=== PATIENT | female | born 1985 | race Caucasian/White ===

== ENCOUNTER 2024-06-10 12:44 | Outpatient (CLI) | payer BC ==
[~2024-06-10 12:44] MED LIST: CYCL-1 PO; DICL50TA8 PO
[2024-06-10 13:11] LABS: BASOPHILS # (AUTO) 0.1 X10'3 (0-0.2); BASOPHILS % (AUTO) 0.9 % (0-1); EOSINOPHILS # (AUTO) 0.4 X10'3 (0-0.9); EOSINOPHILS % (AUTO) 4.8 % (0-6); HEMATOCRIT 45.5 % (35.0-45.0); HEMOGLOBIN 15.5 g/dl (12.0-16.0); LYMPHOCYTES # (AUTO) 2.9 X10'3 (1.1-4.8); LYMPHOCYTES % (AUTO) 38.5 % (21-51); MEAN CORPUSCULAR HEMOGLOBIN 30.8 PG (27.0-31.0); MEAN CORPUSCULAR VOLUME 90.6 FL (78-98); MEAN PLATELET VOLUME 7.9 FL (7.4-10.4); MONOCYTES # (AUTO) 0.4 X10'3 (0-0.9); MONOCYTES % (AUTO) 5.4 % (2-12); NEUTROPHILS # (AUTO) 3.8 X10'3 (1.8-7.7); NEUTROPHILS % (AUTO) 50.4 % (42-75); PLATELET COUNT 268 X10'3 (140-440); RED BLOOD COUNT 5.03 X10'6 (4.20-5.60); RED CELL DISTRIBUTION WIDTH 13.3 % (11.5-14.5); WHITE BLOOD COUNT 7.6 X10'3 (4.5-11.0)
[2024-06-10 13:21] LABS: BILIRUBIN,URINE NEGATIVE (Neg); CLARITY,URINE SLIGHTLY CLOUDY (Clear); COLOR,URINE YELLOW (Yellow); GLUCOSE, URINE NEGATIVE (Neg); KETONES,URINE NEGATIVE (Neg); LEUKOCYTE ESTERASE ,URINE NEGATIVE (Neg); NITRITES, URINE NEGATIVE (Neg); OCCULT BLOOD,URINE TRACE-INTACT (Neg); PH,URINE 5.5 (4.8-8.0); PROTEIN,URINE NEGATIVE (Neg); UROBILINOGEN,URINE 0.2 E.U/dL (0.2-1.0)
[2024-06-10 13:23] LABS: ALANINE AMINOTRANSFERASE 21 U/L (12-78); ALBUMIN 4.1 G/DL (3.4-5.0); ALBUMIN/GLOBULIN RATIO 1.2 (1.1-1.5); ALKALINE PHOSPHATASE 40 IU/L (46-116); ANION GAP 8 (8-16); ASPARTATE AMINO TRANSFERASE 10 U/L (10-37); BLOOD UREA NITROGEN 17 MG/DL (7-18); CALCIUM 9.2 MG/DL (8.5-10.1); CHLORIDE 105 MMOL/L (99-107); CHOL/HDL RATIO 3.2 (0.00-4.99); CHOLESTEROL 187 MG/DL (0-200); CREATININE 0.74 MG/DL (0.40-0.90); FREE T4 (FREE THYROXINE) 0.86 NG/DL (0.73-1.40); GLUCOSE 61 MG/DL (70-104); HDL CHOLESTEROL 58 MG/DL (35-60); LDL CHOLESTEROL 115 MG/DL (50-100); SODIUM 139 MMOL/L (135-145); THYROID STIMULATING HORMONE 2.03 ulU/ml (0.34-4.50); TOTAL CARBON DIOXIDE 26.5 MMOL/L (24-32); TOTAL PROTEIN 7.4 G/DL (6.4-8.2); TRIGLYCERIDES 43 MG/DL (20-135); eGFR 88 ML/MIN
[2024-06-10 15:03] LABS: UA COLLECTION TYPE NON-SPECIFIED
[2024-06-10 15:04] LABS: BACTERIA,URINE FEW /HPF (Neg); MUCUS STRANDS MODERATE /LPF (Neg); RBC,URINE 0-2 /HPF (0-2); SQUAMOUS EPITHELIAL CELL,UR FEW /LPF (FEW); WBC,URINE 0-4 /HPF (0-4)
== END 2024-06-10 23:59 | disposition home or self-care (01) ==
LOC: LAB 12:44
PROVIDERS: ATTEND Family Medicine
DX: Z00.01 Encounter for general adult medical examination with abnormal findings (principal); E11.9 Type 2 diabetes mellitus without complications; E78.5 Hyperlipidemia, unspecified; E16.2 Hypoglycemia, unspecified; R53.83 Other fatigue
CPT/HCPCS: 36415; 80053; 80061; 81001; 82043; 82306; 82570; 84439; 84443; 85025

== ENCOUNTER 2024-08-29 12:48 | Outpatient (CLI) | payer BC ==
[2024-08-29 13:52] LABS: BASOPHILS % (AUTO) 0.6 % (0-1); EOSINOPHILS # (AUTO) 0.4 X10'3 (0-0.9); EOSINOPHILS % (AUTO) 6.2 % (0-6); HEMATOCRIT 43.2 % (35.0-45.0); HEMOGLOBIN 14.9 g/dl (12.0-16.0); LYMPHOCYTES # (AUTO) 2.1 X10'3 (1.1-4.8); LYMPHOCYTES % (AUTO) 37.6 % (21-51); MEAN CORPUSCULAR HEMOGLOBIN 31.2 PG (27.0-31.0); MEAN CORPUSCULAR HGB CONC 34.6 g/dL (33.0-36.5); MEAN CORPUSCULAR VOLUME 90.1 FL (78-98); MONOCYTES # (AUTO) 0.3 X10'3 (0-0.9); MONOCYTES % (AUTO) 4.5 % (2-12); NEUTROPHILS # (AUTO) 2.9 X10'3 (1.8-7.7); NEUTROPHILS % (AUTO) 51.1 % (42-75); PLATELET COUNT 217 X10'3 (140-440); RED BLOOD COUNT 4.79 X10'6 (4.20-5.60); RED CELL DISTRIBUTION WIDTH 12.9 % (11.5-14.5); WHITE BLOOD COUNT 5.7 X10'3 (4.5-11.0)
[2024-08-29 13:59] LABS: ALANINE AMINOTRANSFERASE 24 U/L (12-78); ALBUMIN 3.9 G/DL (3.4-5.0); ALBUMIN/GLOBULIN RATIO 1.1 (1.1-1.5); ALKALINE PHOSPHATASE 40 IU/L (46-116); ANION GAP 6 (8-16); ASPARTATE AMINO TRANSFERASE 16 U/L (10-37); BILIRUBIN,TOTAL 1.5 MG/DL (0.1-1.0); BLOOD UREA NITROGEN 19 MG/DL (7-18); BUN/CREATININE RATIO 22.4 (10.0-20.0); CALCIUM 8.5 MG/DL (8.5-10.1); CHLORIDE 104 MMOL/L (99-107); CREATININE 0.85 MG/DL (0.40-0.90); GLUCOSE 79 MG/DL (70-104); POTASSIUM 4.3 MMOL/L (3.5-5.1); SODIUM 135 MMOL/L (135-145); TOTAL CARBON DIOXIDE 25.3 MMOL/L (24-32); TOTAL PROTEIN 7.3 G/DL (6.4-8.2); eGFR 75 ML/MIN
[2024-08-29 14:09] LABS: CHOL/HDL RATIO 2.9 (0.00-4.99); CHOLESTEROL 170 MG/DL (0-200); FREE T4 (FREE THYROXINE) 0.94 NG/DL (0.73-1.40); HDL CHOLESTEROL 59 MG/DL (35-60); LDL CHOLESTEROL 104 MG/DL (50-100); THYROID STIMULATING HORMONE 2.06 ulU/ml (0.34-4.50); TRIGLYCERIDES 58 MG/DL (20-135)
[2024-08-31 11:16] LABS: ANTINUCLEAR ANTIBODIES Negative (Negative)
[2024-09-01 05:41] LABS: ESTRADIOL 88.7 pg/mL (.); FSH, SERUM 6.6 mIU/mL (.); LUTEINIZING HORMONE 8.2 mIU/mL (.); PROGESTERONE 0.1 ng/mL (.); TESTOSTERONE, SERUM 17 ng/dL (8-60)
== END 2024-08-29 23:59 | disposition home or self-care (01) ==
LOC: RAD 12:48
PROVIDERS: ATTEND Physician Assistant
DX: F41.8 Other specified anxiety disorders (principal); F43.10 Post-traumatic stress disorder, unspecified; N92.1 Excessive and frequent menstruation with irregular cycle
CPT/HCPCS: 36415; 80053; 80061; 82306; 82607; 82670; 82746; 83001; 83002; 84144; 84402; 84403; 84439; 84443; 85025; 86038

== ENCOUNTER 2025-03-09 10:40 | Outpatient (CLI) | payer BC ==
--- NOTE | 2025-03-09 11:23 | RADIOLOGY REPORT ---
Exam: CT CT ABDOMEN PELVIS History: PARTIAL INTESTINAL OBSTRUCTION Comparison Study: None Technique: Multidetector spiral CT of the abdomen and pelvis was performed from lung bases to pubic symphysis. Imaging was performed without IV contrast. Axial, coronal and sagittal multiplanar reform ats were obtained from the axial data set by the technologist. Radiation dose : Abdomen/Pelvis: CTDIvol 9 mGy, DLP 540 mGy*cm. Findings: Evaluation of solid organs is limited due to lack of intravenous contrast use. Lung Bases: No acute or significant lung base finding. Normal heart size. No pleural or pericardial effusion. Liver: The liver is normal in size. No focal lesions. Gallbladder and biliary Tree: Cholelithiasis noted without secondary findings of cholecystitis or fina iary obstruction. Spleen: Unremarkable Pancreas: The pancreas is grossly normal in appearance. Adrenal Glands: Unremarkable Kidneys: Kidneys are grossly normal without calculi or hydronephrosis. Bladder: Grossly unremarkable for degree of distention. Bowel: The stomach is grossly normal in appearance. Small bowel and colon are normal in caliber and d istribution. Normal appendix is visualized in the right lower quadrant without findings of appendicit is. Ascites: Absent Lymphadenopathy: No mesenteric, retroperitoneal or periportal lymphadenopathy. Abdominal wall and Mesentery: Unremarkable. Vasculature: The visualized abdominal aorta is normal in size and caliber. Evaluation of abdominal a nd pelvic vessels is limited due to lack of intravenous contrast. Pelvic Organs: Intrauterine device in place. Musculoskeletal: No aggressive focal bony lesions, acute fractures or dislocation. IMPRESSION: 1. No acute abdominal or pelvic findings. No evidence of bowel obstruction. Cholelithiasis. Radiation optimization: All CT scans at this facility use at least one of these dose optimization ayaan hniques: Automated exposure control mA and/or kV adjustment per patient size (includes targeted exams where dose is matched to clinical indication) or iterative reconstruction. HS:Y
== END 2025-03-09 23:59 | disposition home or self-care (01) ==
LOC: RAD 10:40
PROVIDERS: ATTEND Nurse Practitioner
DX: K80.20 Calculus of gallbladder without cholecystitis without obstruction (principal); K56.600 Partial intestinal obstruction, unspecified as to cause
CPT/HCPCS: 74176

== ENCOUNTER 2025-03-15 08:40 | Outpatient (CLI) | payer BC ==
[~2025-03-15] VITALS: Ht 170.2 cm; Wt 63.6 kg
[2025-03-15] MEDS ORDERED: sincalide inj 1.3 MCG in normal saline 100ml IV soln 98.7 ML IV ONE (10:10)
[2025-03-15] MEDS: sincalide inj 1.3 MCG in normal saline 100ml IV soln 100 ML IV ONE (11:03)
--- NOTE | 2025-03-15 13:48 | RADIOLOGY REPORT ---
CLINICAL INFORMATION: Abdominal pain. Gallstones. TECHNIQUE: 4.9 mCi of Choletec were administered intravenously. Images of the upper abdomen were ob tained at 1 minute intervals up to a total time of 60 minutes. Subsequently, 1.3 mcg kinevac was admi nistered intravenously, as per protocol, and repeat dynamic anterior regional images of the liver wer e obtained over an additional 9 minutes. A region of interest was drawn around the gallbladder, from which a gallbladder ejection fraction was obtained. Time/activity profile curves were generated. COMPARISON: CT dated 03/09/2025. FINDINGS: There is prompt gallbladder visualization. There is prompt excretion of activity from the biliary ductal system into the small bowel. There is no evidence of acute cholecystitis. The gallbladder ejection fraction is calculated to be 94%. IMPRESSION: 1. No scintigraphic evidence of acute cholecystitis. 2. Hyperkinetic gallbladder ejection fraction of 94%.
== END 2025-03-15 23:59 | disposition home or self-care (01) ==
LOC: NM 08:40
PROVIDERS: ATTEND Nurse Practitioner
DX: K80.20 Calculus of gallbladder without cholecystitis without obstruction (principal); K82.9 Disease of gallbladder, unspecified
CPT/HCPCS: 78227; A9537; J2805

== ENCOUNTER 2025-04-21 12:35 | Outpatient (CLI) | payer BC ==
[2025-04-21 13:38] LABS: BASOPHILS % (AUTO) 0.8 % (0-1); EOSINOPHILS # (AUTO) 0.3 X10'3 (0-0.9); EOSINOPHILS % (AUTO) 4.9 % (0-6); HEMATOCRIT 42.8 % (35.0-45.0); HEMOGLOBIN 14.6 g/dl (12.0-16.0); LYMPHOCYTES # (AUTO) 1.8 X10'3 (1.1-4.8); LYMPHOCYTES % (AUTO) 33.8 % (21-51); MEAN CORPUSCULAR HEMOGLOBIN 30.3 PG (27.0-31.0); MEAN CORPUSCULAR HGB CONC 34.1 g/dL (33.0-36.5); MEAN CORPUSCULAR VOLUME 88.9 FL (78-98); MEAN PLATELET VOLUME 8.5 FL (7.4-10.4); MONOCYTES # (AUTO) 0.2 X10'3 (0-0.9); MONOCYTES % (AUTO) 4.2 % (2-12); NEUTROPHILS % (AUTO) 56.3 % (42-75); PLATELET COUNT 208 X10'3 (140-440); RED BLOOD COUNT 4.82 X10'6 (4.20-5.60); RED CELL DISTRIBUTION WIDTH 12.9 % (11.5-14.5); WHITE BLOOD COUNT 5.4 X10'3 (4.5-11.0)
[2025-04-21 13:51] LABS: ALANINE AMINOTRANSFERASE 30 U/L (12-78); ALBUMIN 3.7 G/DL (3.4-5.0); ALKALINE PHOSPHATASE 60 IU/L (46-116); ANION GAP 6 (8-16); ASPARTATE AMINO TRANSFERASE 19 U/L (10-37); BILIRUBIN,TOTAL 0.9 MG/DL (0.1-1.0); BLOOD UREA NITROGEN 10 MG/DL (7-18); BUN/CREATININE RATIO 12.3 (10.0-20.0); C-REACTIVE PROTEIN 0.05 MG/DL (0.0-0.5); CALCIUM 8.8 MG/DL (8.5-10.1); CHLORIDE 105 MMOL/L (99-107); CREATININE 0.81 MG/DL (0.40-0.90); FREE T4 (FREE THYROXINE) 0.81 NG/DL (0.73-1.40); GLUCOSE 80 MG/DL (70-104); HDL CHOLESTEROL 59 MG/DL (35-60); MAGNESIUM 1.9 MG/DL (1.5-2.4); PHOSPHORUS 4.1 MG/DL (2.3-4.5); POTASSIUM 4.1 MMOL/L (3.5-5.1); SODIUM 140 MMOL/L (135-145); THYROID STIMULATING HORMONE 2.78 ulU/ml (0.34-4.50); TOTAL CARBON DIOXIDE 28.9 MMOL/L (24-32); TOTAL PROTEIN 7.3 G/DL (6.4-8.2); TRIGLYCERIDES 51 MG/DL (20-135); eGFR 79 ML/MIN
[2025-04-21 13:57] LABS: CHOL/HDL RATIO 3.1 (0.00-4.99); CHOLESTEROL 185 MG/DL (0-200); LDL CHOLESTEROL 106 MG/DL (50-100)
[2025-04-21 13:58] LABS: HEMOGLOBIN A1C 4.2 % (4.5-6.2)
[2025-04-21 14:30] LABS: % IRON SATURATION 24 % (11-46); IRON 86 UG/DL (49-151); TOTAL IRON BINDING CAPACITY 359 UG/DL (259-388)
--- NOTE | 2025-04-21 18:06 | RADIOLOGY REPORT ---
Indication: GALLSTONES;PARTIAL INTESTINAL OBSTRUCTION Technique: CT axial images of the abdomen and pelvis are obtained without contrast. Coronal and sagit sherwin reformats were obtained. Radiation Dose Information: CTDI volume is 10.3 mGy. Dose-length product is 554 mGy*cm Comparison: CT CT ABDOMEN PELVIS on DOS: 03/09/25 FINDINGS: There is limited interpretation of the abdomen and pelvis without administration of intravenous contr ast. Lung bases demonstrate no pleural effusion. Adrenal glands unremarkable in shape. Plus spleen measures 13 cm AP. Pancreas unremarkable in shape . Cholelithiasis. Pericholecystic / gallbladder wall edema. Liver is unremarkable in shape. Kidneys demonstrate no hydronephrosis. 2 mm nonobstructing left renal calculus. Stomach partially dis tended. Small bowel loops are normal in caliber. Colonic diverticula. Moderate volume stool in the colon. Normal appendix. Bladder partially distended. Intrauterine device. Large left ovarian cystic appearing lesion measuri ng 4.7 cm. There is a small amount of free pelvic fluid. No inguinal lymphadenopathy. [id number] bilateral sacroiliac degenerative joint disease. L5 pars defects with 5 mm anterolis thesis L5 on S1. IMPRESSION: Cholelithiasis and pericholecystic / gallbladder wall edema. Recommend HIDA scan to exclude cholecys titis. Left ovarian/adnexal cystic lesion measuring 4.7 cm. Recommend pelvic ultrasound. Intrauterine device. Splenomegaly. Nonobstructing left renal calculus measuring 2 mm. Colonic diverticular disease. Small amount of free pelvic fluid.2 Other findings as described.
== END 2025-04-21 23:59 | disposition home or self-care (01) ==
LOC: RAD 12:35
PROVIDERS: ATTEND Nurse Practitioner
DX: K57.30 Diverticulosis of large intestine without perforation or abscess without bleeding (principal); E11.9 Type 2 diabetes mellitus without complications; E34.3 Short stature due to endocrine disorder; E34.9 Endocrine disorder, unspecified; K80.20 Calculus of gallbladder without cholecystitis without obstruction; K56.600 Partial intestinal obstruction, unspecified as to cause; E03.9 Hypothyroidism, unspecified; R53.83 Other fatigue; E87.8 Other disorders of electrolyte and fluid balance, not elsewhere classified; K90.9 Intestinal malabsorption, unspecified; Z13.220 Encounter for screening for lipoid disorders; R79.89 Other specified abnormal findings of blood chemistry; E53.8 Deficiency of other specified B group vitamins; M46.1 Sacroiliitis, not elsewhere classified; M43.17 Spondylolisthesis, lumbosacral region; N20.0 Calculus of kidney; N83.202 Unspecified ovarian cyst, left side; R16.1 Splenomegaly, not elsewhere classified
CPT/HCPCS: 36415; 74176; 80053; 80061; 82180; 82306; 82330; 82607; 82670; 82746; 83001; 83002; 83036; 83540; 83550; 83735; 83970; 84100; 84144; 84425; 84439; 84443; 84590; 85025; 86140; 86592

== ENCOUNTER 2025-04-27 08:52 | Outpatient (CLI) | payer BC, MEDICAID ==
--- NOTE | 2025-04-27 12:13 | RADIOLOGY REPORT ---
INDICATION: OVARIAN CYST TECHNIQUE: Multiple real-time grayscale transabdominal and TV sonographic images along with color an d duplex Doppler of the uterus and ovaries were obtained. COMPARISON: None FINDINGS: The uterus measures 9 x 5 x 6 cm. The endometrial stripe measures 0.4cm. The right ovary measures 4 x 2 x 2 cm. The left ovary measures 2 x 2 x 2 cm. Subsequent color and duplex Doppler interrogation of the ovaries demonstrated symmetric vascular flow to both ovaries, though this does not exclude the possibility of torsion due to the dual blood suppl y. IMPRESSION: 1. IUD is noted in good position.
== END 2025-04-27 23:59 | disposition home or self-care (01) ==
LOC: RAD 08:52
PROVIDERS: ATTEND Nurse Practitioner
DX: N83.202 Unspecified ovarian cyst, left side (principal); Z97.5 Presence of (intrauterine) contraceptive device
CPT/HCPCS: 76830; 93976

== ENCOUNTER 2025-06-07 07:45 | Outpatient (CLI) | payer BC, MEDICAID ==
[2025-06-07 11:43] LABS: STREP A SCREEN NEGATIVE (Neg)
== END 2025-06-07 23:59 | disposition home or self-care (01) ==
LOC: LAB 07:45
PROVIDERS: ATTEND Nurse Practitioner
DX: J02.9 Acute pharyngitis, unspecified (principal)
CPT/HCPCS: 87081; 87880

== ENCOUNTER 2025-07-14 12:29 | Outpatient (CLI) | payer BC, MEDICAID ==
--- NOTE | 2025-07-14 14:16 | RADIOLOGY REPORT ---
EXAM: MR MRI LUMBAR SPINE CLINICAL HISTORY: LOW BACK PAIN COMPARISON: MR MRI C SPINE on DOS: 07/14/25, CT CT ABDOMEN PELVIS on DOS: 04/21/25, CT CT ABDOMEN PELVIS on DOS: 03/09/25 TECHNIQUE: MRI imaging of the lumbar was performed on a MRI imaging system without intravenous contrast. FINDINGS GENERAL Intervertebral disc height is maintained. Alignment: No spondylolisthesis identified. Vertebrae: Vertebral body height is well maintained without evidence of a recent compression fracture. Conus: Conus medullaris terminates at the T12-L1 level. T12-L1: The disc configuration is normal. No spinal canal or neural foraminal stenosis. The facet joints are normal. L1-2: The disc configuration is normal. No spinal canal or neural foraminal stenosis. The facet joints are normal. L2-3: The disc configuration is normal. No spinal canal or neural foraminal stenosis. The facet joints are normal. L3-4: The disc configuration is normal. No spinal canal or neural foraminal stenosis. Facet arthrosis. L4-5: The disc configuration is normal. No spinal canal or neural foraminal stenosis. The facet joints are normal. L5-S1: Disc desiccation. Mild disc height loss. Disc bulge with superimposed right extraforaminal disc protrusion measured 4.9 mm in radial dimension. Mild right subarticular zone stenosis. Mild bilateral foraminal stenosis. Facet arthrosis. IMPRESSION: 1. Mild right subarticular zone stenosis at L5-S1 level. Mild bilateral foraminal stenosis at L5-S1 level.
--- NOTE | 2025-07-14 14:51 | RADIOLOGY REPORT ---
CLINICAL INFORMATION: 40 years old, Female; CERVICALGIA. TECHNIQUE: Multisequence multiplanar MRI images of the cervical spine were obtained without contrast. COMPARISON: None. FINDINGS: Bones: Vertebral body alignment is within normal limits. Vertebral body heights are maintained. Posterior elements are intact. No acute fracture. No focal suspicious marrow signal abnormality. Spinal cord: Spinal cord is normal in signal intensity and morphology. Paraspinal soft tissues: Paraspinal and prevertebral soft tissues are unremarkable. Other: No other significant findings. Cervical disc levels: C2-C3: Disc desiccation. No significant spinal canal or neural foraminal stenosis. C3-C4: Disc desiccation. Minimal disc bulge without significant spinal canal stenosis. No significant neural foraminal stenosis. C4-C5: Disc desiccation. No significant spinal canal or neural foraminal stenosis. C5-C6: Disc desiccation. No significant spinal canal or neural foraminal stenosis. C6-C7: Disc desiccation with central disc protrusion mildly indenting the ventral aspect of the thecal sac. Mild spinal canal stenosis. No significant neural foraminal stenosis. C7-T1: Disc desiccation. No significant spinal canal or neural foraminal stenosis. IMPRESSION: 1. Central disc protrusion at C6-C7 mildly indents the ventral aspect of the thecal sac causing a mild degree of spinal canal stenosis. 2. No other significant spinal canal or neural foraminal stenosis in the cervical spine.
== END 2025-07-14 23:59 | disposition home or self-care (01) ==
LOC: MRI02 12:29
PROVIDERS: ATTEND Nurse Practitioner
DX: M47.817 Spondylosis without myelopathy or radiculopathy, lumbosacral region (principal); M51.27 Other intervertebral disc displacement, lumbosacral region; M48.07 Spinal stenosis, lumbosacral region; M50.223 Other cervical disc displacement at C6-C7 level; M48.02 Spinal stenosis, cervical region
CPT/HCPCS: 72141; 72148

== ENCOUNTER 2025-07-24 12:33 | Outpatient (CLI) | payer BC, MEDICAID ==
--- NOTE | 2025-07-24 13:51 | RADIOLOGY REPORT ---
CLINICAL INDICATION: PAIN IN RIGHT SHOULDER COMPARISON: None TECHNIQUE: Multiplanar, multisequence MRI of the right shoulder was performed without contrast. Contrast: None FINDINGS: Glenohumeral joint: There is no fracture or bone marrow edema. Alignment is maintained. No focal articular cartilage defect. There is no joint effusion or synovitis. Acromioclavicular joint: The acromioclavicular joint is narrowed with mild capsular edema. There is a type 1 acromion. Rotator cuff and bursae: The supraspinatus, infraspinatus, subscapularis and teres minor tendons are intact. There is no regional muscle atrophy. No fluid distention of the subacromial subdeltoid bursa. Biceps tendon and glenoid labrum: The long head biceps tendon is located within the bicipital groove and intact. The labrum is unremarkable. IMPRESSION: 1. No evidence of rotator cuff tear. 2. Mild acromioclavicular joint capsular hypertrophy and edema suggestive of sequelae of chronic repetitive micro trauma.
== END 2025-07-24 23:59 | disposition home or self-care (01) ==
LOC: MRI02 12:33
PROVIDERS: ATTEND Nurse Practitioner
DX: M89.311 Hypertrophy of bone, right shoulder (principal); M25.511 Pain in right shoulder
CPT/HCPCS: 73221